=== PATIENT | female | born 1955 | race Caucasian/White ===

== ENCOUNTER 2017-10-07 09:01 | Day surgery (SDC) | payer OTHER ==
[~2017-10-07] VITALS: Ht 162.6 cm; Wt 52.1 kg
[~2017-10-07 09:01] MED LIST: LEVO-T50 MCG PO
[2017-10-07 09:35] VITALS: BP 145/68
[2017-10-07 13:40] VITALS: BP 168/84
[2017-10-07 14:37] VITALS: BP 152/70
== END 2017-10-07 14:45 | disposition home or self-care (01) ==
LOC: SDC 09:01
DX: H35.341 Macular cyst, hole, or pseudohole, right eye (principal); H33.311 Horseshoe tear of retina without detachment, right eye; E55.9 Vitamin D deficiency, unspecified; E03.9 Hypothyroidism, unspecified; D04.9 Carcinoma in situ of skin, unspecified; R91.1 Solitary pulmonary nodule; Z85.3 Personal history of malignant neoplasm of breast; Z87.891 Personal history of nicotine dependence; Z83.3 Family history of diabetes mellitus; Z82.49 Family history of ischemic heart disease and other diseases of the circulatory system; Z82.3 Family history of stroke; Z82.61 Family history of arthritis; Z83.49 Family history of other endocrine, nutritional and metabolic diseases
CPT/HCPCS: J0690